=== PATIENT | female | born 1955 | race Caucasian/White ===

== ENCOUNTER → 2016-11-14 | Outpatient (CLI) | payer OTHER ==
[~2016-11-14] MED LIST: CALCIUM-MAGNES1 EAC9 PO; DYAZIDE 37.5-21 EACH PO; FISH OIL 1,0001 EAC5 PO; FLOMAX0.4 MG PO; FUROSEMIDE PO; GLUCOSAMINE &1 EAC1 PO; HYDROXYCHLOROQ200 M1 PO; METHOTREXATE 22.5 MG PO; MOBIC15 MG PO; MUCINEX600 MG PO; NOLVADEX10 MG PO; ONDANSETRON HCL4 M2 PO; PERCOCET 5-3251 EACH PO; POTASSIUM20 PO; PREDNISONE 10 M10 MG PO; PRILOSEC40 MG PO; SUDAFED30 MG PO; SYMBICORT160 MCG/4. IH; VENTOLIN HFA INH8 GM IH; VITAMIN D32000 UNIT PO
== END ==
LOC: MRI 07:31
DX: M17.12 Unilateral primary osteoarthritis, left knee (principal); M25.462 Effusion, left knee; M71.22 Synovial cyst of popliteal space [Baker], left knee; M25.562 Pain in left knee

== ENCOUNTER → 2017-02-17 | Outpatient (CLI) | payer OTHER ==
[2017-02-17 12:38] LABS: ABSOLUTE NEUTROPHILS 1.5 thou/uL (1.4-8.2); BASOPHILS 0.6 % (0.0-2.0); EOSINOPHILS 5.1 % (0.0-3.0); HEMATOCRIT 36.4 % (37.0-47.0); HEMOGLOBIN 12.3 gm/dL (12.0-15.0); LYMPHOCYTES 46.6 % (24.0-44.0); MCH 29.1 pg (26.0-34.0); MCHC 33.7 g/dL (28.0-37.0); MCV 86.4 fL (80.0-100.0); MONOCYTES 11.1 % (1.0-8.0); PLATELET COUNT 263 thou/uL (150-400); POLYS 36.6 % (36.0-66.0); RBC 4.21 mil/uL (4.20-5.00); RDW 14.9 % (10.5-14.5); WBC 4.1 thou/uL (4.0-11.0)
[2017-02-17 12:45] LABS: MANUAL DIFF NO
[2017-02-17 12:48] LABS: ANION GAP 8 mmol/L (7-16); BUN 16 mg/dL (7-18); CALCIUM 8.6 mg/dL (8.5-10.1); CHLORIDE 104 mmol/L (98-107); CO2 28 mmol/L (21-32); CREATININE 0.8 mg/dL (0.6-1.0); POTASSIUM 3.9 mmol/L (3.5-5.1); SODIUM 140 mmol/L (136-145)
[2017-02-17 12:53] LABS: ALBUMIN 3.5 g/dL (3.4-5.0); ALKALINE PHOSPHATASE 53 U/L (46-116); CHOLESTEROL 194 mg/dL (<200); HDL CHOLESTEROL 57 mg/dL (>40); LDL CHOLESTEROL 123 mg/dL (<100); SGOT 29 U/L (15-37); SGPT 29 U/L (30-65); TC:HDL 3.4 Ratio (Not establshd); TOTAL BILIRUBIN 0.5 mg/dL (<0.1-1.0); TRIGLYCERIDE 73 mg/dL (<150); VLDL 15 mg/dL (<40)
[2017-02-17 13:31] LABS: GLUCOSE 91 mg/dL (74-106)
[2017-02-18 00:10] LABS: IgA 85 mg/dL (87-352); IgG 1249 mg/dL (700-1600); IgM 314 mg/dL (26-217)
== END ==
LOC: LABMALL 07:52
PROVIDERS: Internal Medicine Rheumatology
DX: M05.69 Rheumatoid arthritis of multiple sites with involvement of other organs and systems (principal); R53.83 Other fatigue

== ENCOUNTER → 2017-03-17 | Outpatient (CLI) | payer OTHER | LOC: RAD 02:14 | DX: J45.909 Unspecified asthma, uncomplicated (principal); N20.0 Calculus of kidney ==

== ENCOUNTER → 2017-03-27 | Outpatient (CLI) | payer OTHER ==
--- NOTE | ~2017-03-27 | PFR/MVV ---
[facility] [place] [address] PULMONARY FUNCTION MVV/REPORT Name: MACARENA DOMÍNGUEZ Room #: REG [facility] Makayla#: [id number] Admission: 03/27/17 Attend Phys: Physician not on staff Discharge: Date of : 57 Report #: [id number] THIS REPORT FOR: //name// COPIES FOR: AGE: 61 SEX/RACE: F/C >> SPIROMETRY: (BTPS) Height: 61.0 in cm Weight: 180 lbs kg Exam Date: 03/27/17 PRE-RX POST-RX PRED BEST %PRED BEST %PRED %CHG FVC LITERS . 2.67 . 3.06 . 115 . 3.18 . 119 . 4 FEV1 LITERS . 2.19 . 2.19 . 100 . 2.25 . 103 . 3 FEV1/FVC % . 84 . 72 . 86 . 71 . 85 . -1 GDA92-01% L/Sec . 2.39 . 1.58 . 66 . 1.05 . 44 . -33 PEF L/SEC . 5.35 . 6.07 . 113 . 6.48 . 121 . 7 FEF50/FIF50 UNITLESS . <1.00 . 0.33 . . 0.35 . . 5 MVV L/Min . 92 . 74 . 81 f 1/Min . . 70 . >> LUNG VOLUMES: (BTPS) PRE-RX POST-RX PRED AVG %PRED AVG %PRED %CHG VC Liters . 2.67 . 3.21 . 120 . . . TLC Liters . 4.29 . 5.16 . 120 . . . RV Liters . 1.60 . 1.95 . 122 . . . RV/TLC % . 38 . 38 . 100 . . . FRC [address] Liters . 2.11 . 2.15 . 102 . . . FRC N2 Liters . 2.11 . . . . . ERV Liters . . 0.20 . . . . IC Liters . . 2.77 . . . . >> DIFFUSION: DLCO ml/Min/mmHg . 21.5 . 13.5 . 63 . . . DL Reji ml/Min/mmHg . 21.5 . 13.5 . 63 . . . DLCO/VA ml/Min/mmHg . 3.79 . 3.43 . 91 . . . VA Liters . . 3.95 . . . . [facility] [address] [place] [address] PULMONARY FUNCTION MVV/REPORT Name: MACARENA DOMÍNGUEZ Room #: REG [facility].#: [id number] Admission: 03/27/17 Attend Phys: Physician not on staff Discharge: Date of : 57 Report #: [id number] COMMENTS: COMMENTS: >> RESISTANCE: PRE-RX PRED AVG %PRED Raw Total cmH20/L/Sec . . 2.33 . Raw Insp cmH20/L/Sec . . 2.19 . Raw Exp cmH20/L/Sec . . 2.36 . Raw cmH20/L/Sec . 1.88 . 1.56 . 83 Gaw L/Sec/cmH20 . 0.506 . 0.639 . 126 sRaw cmH20 Sec . 3.96 . 5.37 . 136 sGaw l/cmH20 Sec . 0.253 . 0.186 . 74 Vtq Liters . . 3.44 . # = OUTSIDE 95% CONFIDENCE INTERVAL CALIBRATION: PRED: 3.00 ACTUAL: EXP 3.01 INSP 3.02 [facility] [place] [address] N-1804-4 >> INTERPRETATION/IMPRESSION: CC: Nahomy AGUIRRE Physician staff PULMONARY FUNCTION STUDY: No priors in chart. SPIROMETRY: FVC 115% predicted, FEV1 100% predicted. The FEV1/FVC percent was 72% predicted, suggesting obstruction. LUNG VOLUMES: Total lung capacity 120% predicted, residual volume 122% predicted, within normal limits to suggesting hyperinflation, diffusion 63%, which normalizes with alveolar volume. IMPRESSION: Possible mild obstruction with a diffusion defect, which normalizes with alveolar volume. Clinical correlation suggested. No significant improvement post-bronchodilator. <ELECTRONICALLY SIGNED> By: Douglas Almazan MD 03/31/17 1703 Douglas Almazan MD /nt
== END ==
LOC: PUL 08:31
DX: J45.909 Unspecified asthma, uncomplicated (principal)

== ENCOUNTER → 2017-04-24 | Outpatient (CLI) | payer OTHER | LOC: LABMALL 07:01 → CAT 07:01 | DX: R31.21 Asymptomatic microscopic hematuria (principal) ==

== ENCOUNTER → 2017-06-24 | Outpatient (CLI) | payer OTHER | LOC: RAD 13:13 | DX: I51.7 Cardiomegaly (principal); J18.9 Pneumonia, unspecified organism; J45.50 Severe persistent asthma, uncomplicated; J98.11 Atelectasis ==

== ENCOUNTER → 2017-12-14 | Outpatient (CLI) | payer OTHER ==
[~2017-12-14] MED LIST changes: +ALLEGRA ALLERG180 MG PO; +FOLIC ACID1 MG PO; -FUROSEMIDE PO; +LASIX 40 MG TAB40 M2 PO; +LIPITOR 20 MG T20 M1 PO; +MS CONTIN15 MG PO; +NEURONTIN 300300 M1 PO; +OMEPRAZOLE40 MG PO; +ORENCIA125 MG/1 M SUBQ; +PERCOCET PO; +PROAIR RESPICL90 MCG INH; -SYMBICORT160 MCG/4. IH; +SYMBICORT160 MCG/4. INH; +TRAMADOL 50 MG50 MG PO; +TRI-BUFFERED A325 M1 PO; +TYLENOL EXTRA500 MG PO; +VENTOLIN HFA 1818 GM INH; +VITAMINC500 PO; +XANAX 0.5 MG0.5 M1 PO; +XANAX1 MG PO
== END ==
LOC: NUC 09:01 → RAD 11:07 → NUC 16:07
DX: N20.0 Calculus of kidney (principal); M85.89 Other specified disorders of bone density and structure, multiple sites; E28.39 Other primary ovarian failure; R05 Cough; R06.00 Dyspnea, unspecified; Z78.0 Asymptomatic menopausal state

== ENCOUNTER → 2017-12-16 | Outpatient (CLI) | payer OTHER | LOC: RAD 03:09 | DX: R92.8 Other abnormal and inconclusive findings on diagnostic imaging of breast (principal); Z85.3 Personal history of malignant neoplasm of breast ==

== ENCOUNTER → 2017-12-23 | Outpatient (CLI) | payer OTHER ==
[~2017-12-23] VITALS: Ht 154.9 cm; Wt 79.4 kg
--- NOTE | ~2017-12-23 | CATHLAB ---
[facility] [place] [employer] [place] [address] INVASIVE PROCEDURE REPORT Name: CATRACHITAMACARENA CARLEY Room #: REG [facility]#: [id number] Admission: 12/23/17 Attend Phys: Efra Kelly, Discharge: Date of : 57 Date of Service: 12/23/17912 Report #: [id number] THIS REPORT FOR: //name// APPROVED REPORT Patient Details The patient is a 62 year-old female Event Personnel Efra Kelly Master Ship, Lexus Huddleston, Dagmar Enriquez RTR, BANDAR Scrub, Hamilton Bhatti service tester Performed Left Heart Cath w/or w/o Coronaries [id number] [facility] Procedure Narrative The Right Groin^ was infiltrated with 1% Lidocaine subcutaneous anesthesia. A PINNACLE 6FR Sheath #[id number] sheath was inserted into the RFA^. Coronary angiography was performed using coronary diagnostic catheters. The right coronary system was accessed and visualized with a JR4 catheter. The left coronary system was accessed and visualized with a JL4 catheter. The left ventricle was accessed and visualized with a PIGTAIL catheter. Left ventricular/Aortic Valve gradient assessed via catheter pullback. Left ventriculogram was performed in 30 degree projection. Closure device was deployed with a 6 Fr MYNXGRIP 6/7F #[id number]. The patient tolerated the procedure well and there were no complications associated with the procedure. There was no hematoma. Intraoperative Conscious Sedation Sedation start time: 8.13 Case end Time: 8.28 Versed 2 mg Fluoro Time: 1.02 minutes Dose: DAP 2653.30 cGycm2 285 mGy Contrast Type and Amount: Omnipaque 120 ml Diagnostic Cath Left Main Normal LAD Normal, extending to distal inferior wall Diagonal 1 Normal Diagonal 2 Normal Circumflex Large, non-dominant and comprised of three marginal branches [facility] [place] [employer] [place] [address] INVASIVE PROCEDURE REPORT Name: MACARENA DOMÍNGUEZ [facility] [id number] Admission: 12/23/17 Attend Phys: Efra Kelly, Discharge: Date of : 57 Date of Service: 12/23/17 0913 Report #: [id number] OM1 Normal OM2 Normal, distally arising OM3 Small, angiographically normal Right Coronary Normal R PDA Normal RPLV Normal Left Ventriculography The left ventricle is normal in size with normal contractility. The left ventricular ejection fraction is estimated to be 60-65%. Left ventricular wall motion abnormalities are not present. There is no mitral insufficiency. Hemodynamics The aortic pressure is 147/70 mmHg with a mean of 106 mmHg. The left ventricular pressure is 118/16 mmHg with a mean of mmHg. The left ventricular end diastolic pressure is 27 mmHg. Conclusion 1. Normal global and regional systolic function. EF 65% 2. Normal coronary vasculature. Right coronary dominant circulation <ELECTRONICALLY SIGNED> By: Efra Kelly MD, FACC 12/23/17912 2 2 Efra Kelly MD, FACC /INF
--- NOTE | ~2017-12-23 | EKG ---
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 AUSTIN : 1955 Requested By: Efra Kelly Order Number: [id number] MD: Efra Kelly Measurements Intervals [place] Rate: 80 P: 45 [place]: 162 QRS: 1 QRSD: 85 T: 1 QT: 398 QTc: 460 Interpretive Statements Sinus rhythm No significant abnormality Compared to ECG 09/18/2011 06:32:54 T-wave abnormality no longer present Electronically Signed On 12-23-2017 8:49:45 [employer] by Efra Kelly [email or web address] <ELECTRONICALLY SIGNED> By: Efra Kelly MD, [facility] 12/23/17 0849 9 9 Efra Kelly MD, [facility] /EPI
[2017-12-23 07:33] VITALS: BP 121/70
== END | disposition home or self-care (01) ==
LOC: CATH 06:38
DX: R94.39 Abnormal result of other cardiovascular function study (principal); M06.9 Rheumatoid arthritis, unspecified; Z98.890 Other specified postprocedural states; Z82.49 Family history of ischemic heart disease and other diseases of the circulatory system; K21.9 Gastro-esophageal reflux disease without esophagitis; E78.5 Hyperlipidemia, unspecified; Z85.3 Personal history of malignant neoplasm of breast

== ENCOUNTER 2018-01-11 05:27 | Inpatient (IN) | payer OTHER ==
[2018-01-04 13:29] LABS: URINE BILIRUBIN NEGATIVE (Negative); URINE BLOOD NEGATIVE (Negative); URINE COLOR YELLOW; URINE GLUCOSE-RANDOM* NEGATIVE (Negative); URINE KETONES NEGATIVE (Negative); URINE PROTEIN (DIPSTICK) TRACE (Negative); URINE UROBILINOGEN 0.2 E.U./dl (0.2-1.0)
[2018-01-04 13:30] LABS: HEMATOCRIT 35.5 % (37.0-47.0); HEMOGLOBIN 11.4 gm/dL (12.0-15.0); MCH 26.8 pg (26.0-34.0); MCHC 32.3 g/dL (28.0-37.0); MCV 83.1 fL (80.0-100.0); RBC 4.27 mil/uL (4.20-5.00); RDW 16.9 % (10.5-14.5)
[2018-01-04 13:31] LABS: URINE LEUKOCYTES-REFLEX 2+ (Negative); URINE NITRITE-REFLEX POSITIVE (Negative)
[2018-01-04 13:32] LABS: URINE CLARITY CLOUDY
[2018-01-04 13:33] LABS: BACTERIA-REFLEX >30 Many /HPF (None Seen); CASTS None Seen /LPF (None Seen); SQUAMOUS 0-3 Few /LPF (0-3); URINE RBC None Seen /HPF (0-2); URINE WBC-REFLEX >25 Many /HPF (0-5)
[2018-01-04 13:34] LABS: CRYSTALS None Seen /LPF (None Seen)
[2018-01-04 13:38] LABS: ALBUMIN 3.2 g/dL (3.4-5.0); CREATININE 0.8 mg/dL (0.6-1.0); POTASSIUM 4.1 mmol/L (3.5-5.1)
[2018-01-04 13:43] LABS: PROTIME 10.3 Seconds (9.3-11.4)
[~2018-01-11] VITALS: Ht 154.9 cm; Wt 79.4 kg
--- NOTE | ~2018-01-11 | O ---
[facility] [place] [address] OPERATIVE REPORT Name: MACARENA DOMÍNGUEZ Room #: 402-P [facility] IN M.R.#: [id number] Admission: 01/11/18 Attend Phys: Jaylen Sharp MD Discharge: 01/12/18 Date of : 57 Report #: [id number] THIS REPORT FOR: //name// CC: EMERSON MORFIN Physician staff Jaylen Sharp DATE OF SERVICE: 01/11/2018 PREOPERATIVE DIAGNOSIS: Left knee rheumatoid arthritis. POSTOPERATIVE DIAGNOSIS: Left knee rheumatoid arthritis. PROCEDURE: Left total knee arthroplasty. SURGEON: Jaylen Sharp MD SHAFT HEADMAN: Petra Ward PA-C INDICATIONS FOR SHAFT HEADMAN: Throughout the case, extensive retraction and manipulation of the knee was required, this was afforded to me by my assistant surveyor ANESTHESIA: LMA with an adductor canal block. IMPLANTS: Zaragoza and Nephew size 5 Legion Oxinium posterior stabilized femur, size 3 tibia, size 35 patella and a size 11 constrained liner. TOURNIQUET TIME: 56 minutes. ESTIMATED BLOOD LOSS: 50 mL. COMPLICATIONS: None. SPECIMENS: None. CONDITION UPON LEAVING THE OPERATING ROOM: Stable. INDICATION FOR PROCEDURE: The patient is a 62-year-old female who has rheumatoid arthritis. She has had increasing debility and pain in her left knee and had failed conservative treatment for this. After discussion with her, she elected for left total knee arthroplasty. DESCRIPTION OF PROCEDURE: Risks, benefits, alternatives, and complications were discussed in detail with the patient including, but not limited to risk of anesthesia, risk of damage to nerves, arteries, blood vessels, risk for infection, bleeding, risk for continued knee pain, need for reoperation. [facility] [address] [place] [address] OPERATIVE REPORT Name: MACARENA DOMÍNGUEZ Room #: 402-P [facility] IN M.R.#: [id number] Admission: 01/11/18 Attend Phys: Jaylen Sharp MD Discharge: 01/12/18 Date of : 57 Report #: [id number] Informed consent was obtained from the patient. The left knee was appropriately marked in the preoperative holding area. Adductor canal block was placed by anesthesia. IV Ancef was given for preoperative antibiotics. She was brought to the operating room and placed in supine position on operating room table. LMA anesthesia was induced without complication. Tourniquet was placed on left thigh. Left lower extremity was prepped and draped in normal sterile fashion. Timeout was performed properly identifying the patient and procedure as well as instrumentation. All in the operating room were in agreement. Left lower extremity was exsanguinated, tourniquet was inflated. Tourniquet time was 56 minutes. Standard midline approach to the knee was made with 10-blade through the skin. Dissection was taken down sharply to the fascia and deep flaps were developed medially and laterally. Fresh 10-blade was used to make a medial parapatellar arthrotomy and the knee was inspected, there was extensive rheumatoid arthritic change of the knee. There was significant hypertrophy of the synovium and a synovectomy was performed with a Bovie cautery. The patella was everted, knee was flexed. ACL and PCL were removed sharply. Drill was used to gain access to canal of the femur and distal femoral cutting block was pinned in place. Distal femoral cut was made. Femur sized found to be a size 5. A size 5, 4-in-1 cutting block was placed. Anterior, posterior and chamfer cuts were made. After this tibia was subluxed anteriorly, remainder of the menisci were removed with Bovie cautery and a drill was used to gain access to the canal of the tibia. Tibial resection was based off the lateral plateau. After tibial resection was performed, posterior osteophytes were removed from the femur and flexion and extension gaps were checked and found to have good balance with an 11 and flexion and extension medially. She was laterally, it was felt that this could be made up for with a constrained liner. Tibia was sized, found to be a size 3, the size 3 tibial trial was placed and the punch was performed. A size 5 femoral trial was placed, box cut was made, post was placed and the knee was trialed with a size 11 highly constrained polyethylene, found to have good range of motion and balance. A 9-mm was taken off the posterior surface of the patella and a size 35 patella button was placed. Knee was taken through range of motion, found to be stable, found to have good balance in flexion and extension both medially and laterally. After this, the trial components were removed. Final size 3 tibia, size 5 Legion Oxinium posterior stabilized femur and a size 35 patella were cemented in place using standard cementation techniques. While the cement cured, a periarticular injection consisting of morphine, ropivacaine, epinephrine and Toradol was placed around the knee joint. After the cement cured, the tourniquet was deflated. Hemostasis was obtained with Bovie cautery. A final size 11 highly constrained polyethylene was placed. A gram of vancomycin was placed deep in the joint. The fascia was closed with 0 Vicryl, skin was closed with 2-0 Vicryl, 3-0 Monocryl, and a Dermabond and a [facility] [address] [place] [address] OPERATIVE REPORT Name: MACARENA DOMÍNGUEZ Room #: 402-P [facility] IN .R.#: [id number] Admission: 01/11/18 Attend Phys: Jaylen Sharp MD Discharge: 01/12/18 Date of : 57 Report #: [id number] CARLITOS dressing was applied. The patient tolerated this procedure well and went to the recovery room under the care of anesthesia postoperatively. <ELECTRONICALLY SIGNED> By: Jaylen Sharp MD 01/13/18 1448 1701 1748 Jaylen Sharp MD /nt
[~2018-01-11 05:27] MED LIST changes: -ALLEGRA ALLERG180 MG PO; -MS CONTIN15 MG PO; -PERCOCET PO; -TRI-BUFFERED A325 M1 PO; -VITAMINC500 PO
[2018-01-11 14:19] VITALS: BP 134/74
[2018-01-11 20:40] VITALS: BP 115/64
[2018-01-11 20:44] VITALS: BP 106/60
[2018-01-11 20:55] VITALS: BP 102/66
[2018-01-11 21:15] VITALS: BP 104/65
[2018-01-11 23:46] VITALS: BP 98/57
[2018-01-12 02:40] VITALS: BP 88/56
[2018-01-12 04:31] VITALS: BP 99/56
[2018-01-12 06:40] LABS: HEMOGLOBIN 9.5 gm/dL (12.0-15.0); MCH 27.2 pg (26.0-34.0); MCHC 32.8 g/dL (28.0-37.0); MCV 82.7 fL (80.0-100.0); RBC 3.51 mil/uL (4.20-5.00); RDW 15.7 % (10.5-14.5); WBC 12.4 thou/uL (4.0-11.0)
[2018-01-12 08:51] VITALS: BP 114/63
[2018-01-12] MEDS ORDERED: TRI-BUFFERED A325 M1 PO (09:38)
[2018-01-12] MEDS ORDERED: MS CONTIN15 MG PO (09:39)
[2018-01-12] MEDS ORDERED: PERCOCET PO (09:45)
[2018-01-12 16:24] VITALS: BP 114/63
[2018-06-02] MEDS ORDERED: VITAMINC500 PO (10:40)
[2018-06-02] MEDS ORDERED: METHOTREXATE 22.5 MG PO (10:41)
[2018-08-27] MEDS ORDERED: ALLEGRA ALLERG180 MG PO (08:46)
== END 2018-01-12 18:12 | disposition home or self-care (01) | DRG 470 ==
LOC: PRE 05:27 → TBA 05:28 → PRE 12:39 → 4N 20:34 → ENTRNSPT 01-12 18:05 → 4N 01-12 18:12
PROVIDERS: Orthopaedic Surgery
PROC: 0SRD0J9 Replacement of Left Knee Joint with Synthetic Substitute, Cemented, Open Approach (ICD-10-PCS; principal; 2018-01-11)
DX: M17.12 Unilateral primary osteoarthritis, left knee (principal); Z79.899 Other long term (current) drug therapy
CPT/HCPCS: 10790; 50010; 50101; 50415; 50954; 51130; 51225; 51771; 53000; 53078; 53365; 54118; 56527; 56528; 57095; 62110; 62900; 64043

== ENCOUNTER 2018-09-13 05:17 | Inpatient (IN) | payer OTHER ==
[2018-08-30 12:51] LABS: URINE BILIRUBIN NEGATIVE (Negative); URINE BLOOD 2+ (Negative); URINE CLARITY CLOUDY; URINE COLOR YELLOW; URINE GLUCOSE-RANDOM* NEGATIVE (Negative); URINE KETONES NEGATIVE (Negative); URINE NITRITE-REFLEX NEGATIVE (Negative); URINE PROTEIN (DIPSTICK) NEGATIVE (Negative); URINE SPECIFIC GRAVITY 1.025 (1.005-1.035); URINE UROBILINOGEN 0.2 E.U./dl (0.2-1.0)
[2018-08-30 12:54] LABS: URINE LEUKOCYTES-REFLEX 2+ (Negative)
[2018-08-30 12:55] LABS: HEMATOCRIT 40.2 % (37.0-47.0); HEMOGLOBIN 13.4 gm/dL (12.0-15.0); MCHC 33.3 g/dL (28.0-37.0); MCV 84.1 fL (80.0-100.0); RBC 4.78 mil/uL (4.20-5.00); RDW 15.7 % (10.5-14.5); WBC 7.9 thou/uL (4.0-11.0)
[2018-08-30 12:59] LABS: BACTERIA-REFLEX 1-9 Few /HPF (None Seen); CASTS None Seen /LPF (None Seen); CRYSTALS None Seen /LPF (None Seen); SQUAMOUS 0-3 Few /LPF (0-3); URINE RBC 3-10 Few /HPF (0-2); URINE WBC-REFLEX >25 Many /HPF (0-5)
[2018-08-30 13:03] LABS: PROTIME 10.1 Seconds (9.3-11.4)
[2018-08-30 13:07] LABS: ALBUMIN 3.6 g/dL (3.4-5.0); CALCIUM 9.7 mg/dL (8.5-10.1); CREATININE 0.9 mg/dL (0.6-1.0); POTASSIUM 4.4 mmol/L (3.5-5.1)
[~2018-09-13] VITALS: Ht 154.9 cm; Wt 83.9 kg
--- NOTE | ~2018-09-13 | O ---
[facility] [address] OPERATIVE REPORT Name: MACARENA DOMÍNGUEZ Room #: 418-P [facility] IN M.R.#: [id number] Admission: 09/13/18 Attend Phys: Jaylen Sharp MD Discharge: 09/14/18 Date of : 57 Report #: [id number] THIS REPORT FOR: //name// CC: Jaylen [place] DATE OF SERVICE: 09/13/2018 PREOPERATIVE DIAGNOSIS: Right knee rheumatoid arthritis. POSTOPERATIVE DIAGNOSIS: Right knee rheumatoid arthritis. PROCEDURE: Right total knee arthroplasty using NAVIO robotic dental chairside assistant. SURGEON: aJylen Sharp MD. WAREHOUSE SORTER: Petra Ward PA-C INDICATION FOR WAREHOUSE SORTER: Throughout the case extensive retraction and manipulation of the knee was required. This was afforded to me by my dental chairside assistant. ANESTHESIA: LMA with an adductor canal block. IMPLANTS: Zaragoza and Nephew size 4 Journey 2 BCS Oxinium femur, a size 3 tibia, a size 32 patella and a size 9 highly constrained polyethylene. TOURNIQUET TIME: 66 minutes. ESTIMATED BLOOD LOSS: 25 mL. CONDITION UPON LEAVING THE OPERATING ROOM: Stable. INDICATION FOR PROCEDURE: The patient is a 62-year-old female with right knee rheumatoid arthritis. She has failed conservative measures for this and after discussion with her, she elected for right total knee arthroplasty. DESCRIPTION OF PROCEDURE: Risks, benefits, alternatives, complications were discussed in detail with the patient including but not limited to risk of anesthesia, risk of damage to nerves, arteries, blood vessels, risk for infection, bleeding, risk for continued knee pain and need for operation. Informed consent was obtained from the patient. Right knee was appropriately marked in the preoperative holding area. IV vancomycin was given for preoperative antibiotics. She was brought to the operating room and placed in supine position on operating room table. LMA anesthesia was induced without complication. Tourniquet was placed on the right thigh. Right lower extremity was prepped and draped in normal sterile fashion. Timeout was performed [address] [address] OPERATIVE REPORT Name: FEMIDAREKEmelyMACARENA CARLEY Room #: 418-P [facility] IN M.R.#: [id number] Admission: 09/13/18 Attend Phys: Jaylen Sharp MD Discharge: 09/14/18 Date of : 57 Report #: [id number] properly identifying the patient and procedure as well as the instrumentation and implants. All in the operating room were in agreement. Right lower extremity was exsanguinated, tourniquet was inflated. Tourniquet time was 66 minutes. Standard midline approach to knee was made with 10 blade through the skin. Dissection was taken down sharply to the fascia and deep flaps were developed medially and laterally. A fresh 10 blade was used to make a medial parapatellar arthrotomy and the knee was inspected. There was severe tricompartmental rheumatoid arthritis. ACL, and PCL were removed sharply. Anterior horns of the meniscus were removed sharply. Reference pins were then placed in the femur and the tibia and the knee was then mapped using the NAVIO distal navigation system. Intraoperative plan was made and we sized to a size 4 femur, a size 3 tibia. After acceptance of the intraoperative plan, the distal femoral resection was made with the NAVIO agatha. The 5-in-1 size 4 cutting block was then placed and pinned and the chamfer cuts were made. After this, attention was turned to the tibia. The knee was hyperflexed. Tibia was subluxed anteriorly. Tibial resection guide was pinned in place using the NAVIO robotic assistance. Tibial resection was made. After this, flexion and extension gaps were checked with the block and found to have good balance in flexion and extension both medially and laterally. Tibia was sized, found to be a size 3, a size 3 tibial trial was placed and this was pinned and punched. The size 4 femoral trial was placed and the box cut was made. This was then trialed with size 9 polyethylene. Knee was taken through range of motion and found to have good balance medially throughout, full range of motion with significant laxity laterally. This was then trialed with a highly constrained implant and found to have equal balance in flexion, extension both digitally as well as manually. After this, the 9 mm was taken off the posterior surface of the patella and a size 32 [address] block was place. The knee was taken through range of motion, found to have good balance in flexion and extension with good patellar tracking. Trial components were removed. Bony ends were thoroughly irrigated with normal saline. Final size 3 tibia, size 4 Journey 2 BCS Oxinium femur and a size 32 patella were cemented in place using standard cementation techniques. While the cement cured, a periarticular injection consisting of morphine, ropivacaine, epinephrine and Toradol was placed around the knee joint capsule. After the cement cured, the tourniquet was deflated. Hemostasis was obtained with Bovie cautery. A final size 9 highly constrained polyethylene was placed. A gram of vancomycin was placed deep in the joint. The fascia was closed with 0 Vicryl, skin was closed with 2-0 Vicryl, 3-0 Monocryl. Dermabond and CARLITOS dressing was applied. The patient tolerated this procedure well and went to recovery room under the care of Anesthesia postoperatively. <ELECTRONICALLY SIGNED> By: Jaylen Sharp MD 09/15/18 1559 1631 1723 Jaylen Sharp MD /dilia
[~2018-09-13 05:17] MED LIST changes: +ALLEGRA ALLERG180 MG PO; +MS CONTIN15 MG PO; +PERCOCET PO; +TRI-BUFFERED A325 M1 PO; +VITAMINC500 PO
[2018-09-13 11:45] VITALS: BP 122/70
[2018-09-13 15:56] VITALS: BP 138/81
[2018-09-13 16:30] VITALS: BP 114/75
[2018-09-13 17:30] VITALS: BP 114/70
[2018-09-13 20:38] VITALS: BP 117/67
[2018-09-14 04:05] LABS: HEMATOCRIT 31.8 % (37.0-47.0); HEMOGLOBIN 10.7 gm/dL (12.0-15.0); MCH 28.1 pg (26.0-34.0); MCHC 33.6 g/dL (28.0-37.0); MCV 83.6 fL (80.0-100.0); RBC 3.8 mil/uL (4.20-5.00); RDW 15.2 % (10.5-14.5); WBC 11.6 thou/uL (4.0-11.0)
[2018-09-14 04:41] VITALS: BP 123/76
[2018-09-14 08:12] VITALS: BP 103/63
[2018-09-14] MEDS ORDERED: TRI-BUFFERED A325 M1 PO (10:29)
[2018-09-14] MEDS ORDERED: NEURONTIN 300300 M1 PO (10:29)
[2018-09-14 11:39] VITALS: BP 103/63
[2018-09-14 15:33] VITALS: BP 121/71
== END 2018-09-14 18:00 | disposition home or self-care (01) | DRG 470 ==
LOC: PRE 05:17 → TBA 10:15 → PRE 10:59 → 4E 15:38 → ENTRNSPT 09-14 17:40 → 4E 09-14 18:00
PROVIDERS: Orthopaedic Surgery
PROC: 0SRC069 Replacement of Right Knee Joint with Oxidized Zirconium on Polyethylene Synthetic Substitute, Cemented, Open Approach (ICD-10-PCS; principal; 2018-09-13)
DX: M06.861 Other specified rheumatoid arthritis, right knee (principal); J45.909 Unspecified asthma, uncomplicated; Z96.652 Presence of left artificial knee joint; K21.9 Gastro-esophageal reflux disease without esophagitis; Z85.3 Personal history of malignant neoplasm of breast; Z92.3 Personal history of irradiation; Z90.49 Acquired absence of other specified parts of digestive tract; Z90.710 Acquired absence of both cervix and uterus; Z86.14 Personal history of Methicillin resistant Staphylococcus aureus infection; Z79.899 Other long term (current) drug therapy; Z88.1 Allergy status to other antibiotic agents
CPT/HCPCS: 10783; 50010; 50101; 50415; 50954; 51130; 51225; 51771; 53000; 53078; 54118; 55372; 56527; 56528; 57095; 57103; 57109; 57110; 57113; 57127; 62110; 62900; 64042; 70005

== ENCOUNTER 2018-11-27 20:36 | Emergency (ER) | payer OTHER ==
[~2018-11-27] VITALS: Ht 154.9 cm; Wt 85.3 kg
[2018-11-27 21:14] LABS: URINE BILIRUBIN NEGATIVE (Negative); URINE CLARITY CLEAR; URINE COLOR YELLOW; URINE GLUCOSE-RANDOM* NEGATIVE (Negative); URINE KETONES 1+ (Negative); URINE PROTEIN (DIPSTICK) NEGATIVE (Negative); URINE SPECIFIC GRAVITY 1.015 (1.005-1.035)
[2018-11-27 21:15] LABS: URINE BLOOD NEGATIVE (Negative); URINE LEUKOCYTES-REFLEX 1+ (Negative); URINE NITRITE-REFLEX NEGATIVE (Negative); URINE UROBILINOGEN 0.2 E.U./dl (0.2-1.0)
[2018-11-27 21:19] LABS: CASTS None Seen /LPF (None Seen); MUCUS 0-3 Light strn/LPF (None Seen); SQUAMOUS None Seen /LPF (0-3)
[2018-11-27 21:20] LABS: BACTERIA-REFLEX 1-9 Few /HPF (None Seen); CRYSTALS None Seen /LPF (None Seen); URINE RBC 3-10 Few /HPF (0-2); URINE WBC-REFLEX >25 Many /HPF (0-5); WBC CLUMPS Rare (None Seen)
[2018-11-27 22:13] LABS: ABSOLUTE NEUTROPHILS 11.5 thou/uL (1.4-8.2); BASOPHILS 0.6 % (0.0-2.0); EOSINOPHILS 0.1 % (0.0-3.0); HEMATOCRIT 35.5 % (37.0-47.0); LYMPHOCYTES 7.6 % (24.0-44.0); MCH 28.1 pg (26.0-34.0); MCHC 33.8 g/dL (28.0-37.0); MCV 83.2 fL (80.0-100.0); MONOCYTES 8.6 % (1.0-8.0); PLATELET COUNT 365 thou/uL (150-400); POLYS 83.1 % (36.0-66.0); RBC 4.27 mil/uL (4.20-5.00); RDW 15.1 % (10.5-14.5); WBC 13.9 thou/uL (4.0-11.0)
[2018-11-27 22:24] LABS: CALCIUM 9.2 mg/dL (8.5-10.1); CREATININE 1.3 mg/dL (0.6-1.0); POTASSIUM 3.8 mmol/L (3.5-5.1)
[2018-11-27 22:29] LABS: ALBUMIN 3.4 g/dL (3.4-5.0); TOTAL BILIRUBIN 0.5 mg/dL (<0.1-1.0); TOTAL PROTEIN 7.3 g/dL (6.4-8.2)
[2018-11-28 00:45] VITALS: BP 106/71
== END 2018-11-28 00:40 | disposition short-term general hospital (02) ==
LOC: ER 20:36
PROVIDERS: Student in an Organized Health Care Education/Training Program
DX: N13.2 Hydronephrosis with renal and ureteral calculous obstruction (principal); N39.0 Urinary tract infection, site not specified; N17.9 Acute kidney failure, unspecified; M19.90 Unspecified osteoarthritis, unspecified site; J45.909 Unspecified asthma, uncomplicated; K21.9 Gastro-esophageal reflux disease without esophagitis; Z90.49 Acquired absence of other specified parts of digestive tract; Z90.710 Acquired absence of both cervix and uterus; Z95.5 Presence of coronary angioplasty implant and graft; Z88.1 Allergy status to other antibiotic agents

== ENCOUNTER → 2018-12-20 | Outpatient (CLI) | payer OTHER | LOC: RAD 03:20 | DX: Z12.31 Encounter for screening mammogram for malignant neoplasm of breast (principal) ==

== ENCOUNTER → 2019-05-06 | Outpatient (CLI) | payer OTHER | LOC: RAD 13:04 | DX: N20.0 Calculus of kidney (principal); K56.41 Fecal impaction ==

== ENCOUNTER → 2019-08-18 | Outpatient (CLI) | payer OTHER | LOC: RAD 08:09 | DX: N20.0 Calculus of kidney (principal); K56.41 Fecal impaction ==

== ENCOUNTER → 2020-01-06 | Outpatient (CLI) | payer OTHER | LOC: BC 10:36 | DX: Z12.31 Encounter for screening mammogram for malignant neoplasm of breast (principal) ==

== ENCOUNTER 2020-01-23 17:12 | Emergency (ER) | payer OTHER ==
[~2020-01-23] VITALS: Ht 157.5 cm; Wt 81.7 kg
[2020-01-23 18:51] LABS: HEMATOCRIT 38.5 % (37.0-47.0); HEMOGLOBIN 12.5 gm/dL (12.0-15.0); MCH 27.4 pg (26.0-34.0); MCHC 32.4 g/dL (28.0-37.0); MCV 84.7 fL (80.0-100.0); PLATELET COUNT 338 thou/uL (150-400); RBC 4.55 mil/uL (4.20-5.00); RDW 14.6 % (10.5-14.5); WBC 4.6 thou/uL (4.0-11.0)
[2020-01-23 19:00] LABS: ANION GAP 7 mmol/L (7-16); BUN 15 mg/dL (7-18); CALCIUM 8.9 mg/dL (8.5-10.1); CHLORIDE 103 mmol/L (98-107); CO2 26 mmol/L (21-32); CREATININE 0.9 mg/dL (0.6-1.0); GLUCOSE 100 mg/dL (74-106); POTASSIUM 3.8 mmol/L (3.5-5.1); SODIUM 136 mmol/L (136-145)
[2020-01-23 19:06] LABS: APTT 35.1 Seconds (24.5-32.8); PROTIME 9.9 Seconds (9.3-11.4)
[2020-01-23 19:06] LABS: BE(vivo) -3.5 mmol/L (-2 to +3); HCO3 21.2 mmol/L (22.0-26.0); PCO2 VENOUS 37.5 mmHg (41.0-51.0); PO2 VENOUS 55.1 mmHg (35.0-45.0)
[2020-01-23 19:11] LABS: ALBUMIN 3.6 g/dL (3.4-5.0); MAGNESIUM 1.7 mg/dL (1.8-2.4); SGOT 38 U/L (15-37); SGPT 30 U/L (30-65); TOTAL BILIRUBIN 0.2 mg/dL (<0.1-1.0); TOTAL PROTEIN 6.9 g/dL (6.4-8.2); TROPONIN-I <0.06 ng/mL (<0.06)
[2020-01-23] MEDS ORDERED: TAMIFLU75 MG PO (19:48)
[2020-01-23] MEDS ORDERED: PREDNISONE 10 M10 M1 PO (19:48)
[2020-01-23] MEDS ORDERED: VENTOLIN HFA 1818 GM INH (19:48)
[2020-01-23] MEDS ORDERED: TESSALON PERLE100 MG PO (19:48)
[2020-01-23] MEDS ORDERED: DOXYCYCLINE 10100 MG PO (19:48)
[2020-01-23 20:19] VITALS: BP 125/70
--- NOTE | 2020-01-24 08:47 | EKG ---
[facility] [place] [address] [address] ELECTROCARDIOGRAM REPORT Name: MACARENA DOMÍNGUEZ Room #: DEP 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: : 1955 Requested By: Carlos Burch Order Number: [id number] MD: Efra Kelly Measurements Intervals [place] Rate: 90 P: 46 AL: 148 QRS: -14 QRSD: 85 T: 11 QT: 361 QTc: 442 Interpretive Statements Sinus rhythm Poor R wave progression Compared to ECG 12/23/2017 07:40:01 No significant change was found Electronically Signed On 01-24-2020 8:46:32 CDT by Efra Kelly [email or web address] <ELECTRONICALLY SIGNED> By: Efra Kelly MD, [facility] 01/24/20 0846 180 01 Efra Kelly MD, [facility] /EPI
== END 2020-01-23 20:21 | disposition home or self-care (01) ==
LOC: ER 17:12
PROVIDERS: Emergency Medicine
DX: J45.901 Unspecified asthma with (acute) exacerbation (principal); M06.9 Rheumatoid arthritis, unspecified; Z90.710 Acquired absence of both cervix and uterus; Z90.49 Acquired absence of other specified parts of digestive tract; Z96.652 Presence of left artificial knee joint; Z98.61 Coronary angioplasty status; Z98.890 Other specified postprocedural states; Z79.899 Other long term (current) drug therapy; Z88.1 Allergy status to other antibiotic agents

== ENCOUNTER → 2020-05-31 | Outpatient (CLI) | payer OTHER ==
[~2020-05-31] MED LIST changes: +DOXYCYCLINE 10100 MG PO; +PREDNISONE 10 M10 M1 PO; +TAMIFLU75 MG PO; +TESSALON PERLE100 MG PO
[2020-05-31 11:00] LABS: ABSOLUTE NEUTROPHILS 3.4 thou/uL (1.4-8.2); BASOPHILS 0.5 % (0.0-2.0); EOSINOPHILS 0.7 % (0.0-3.0); HEMATOCRIT 40.2 % (37.0-47.0); HEMOGLOBIN 13.3 gm/dL (12.0-15.0); LYMPHOCYTES 32.6 % (24.0-44.0); MCH 28.2 pg (26.0-34.0); MCHC 33.1 g/dL (28.0-37.0); MCV 85.1 fL (80.0-100.0); MONOCYTES 6.5 % (1.0-8.0); PLATELET COUNT 372 thou/uL (150-400); POLYS 59.7 % (36.0-66.0); RBC 4.73 mil/uL (4.20-5.00); RDW 15.7 % (10.5-14.5); WBC 5.7 thou/uL (4.0-11.0)
[2020-05-31 11:17] LABS: ALBUMIN 3.6 g/dL (3.4-5.0); CALCIUM 8.7 mg/dL (8.5-10.1); CREATININE 0.8 mg/dL (0.6-1.0); POTASSIUM 4.3 mmol/L (3.5-5.1); TOTAL BILIRUBIN 0.3 mg/dL (0.2-1.0); TOTAL PROTEIN 7.1 g/dL (6.4-8.2)
== END ==
LOC: LAB 09:45
PROVIDERS: ATTEND Internal Medicine Rheumatology
DX: M06.09 Rheumatoid arthritis without rheumatoid factor, multiple sites (principal)

== ENCOUNTER → 2020-09-06 | Outpatient (CLI) | payer OTHER ==
[2020-09-06 10:57] LABS: BASOPHILS 0.5 % (0.0-2.0); EOSINOPHILS 0.5 % (0.0-3.0); HEMATOCRIT 41.5 % (37.0-47.0); HEMOGLOBIN 13.5 gm/dL (12.0-15.0); LYMPHOCYTES 36.3 % (24.0-44.0); MCH 28.2 pg (26.0-34.0); MCHC 32.6 g/dL (28.0-37.0); MCV 86.5 fL (80.0-100.0); MONOCYTES 8.4 % (1.0-8.0); PLATELET COUNT 377 thou/uL (150-400); POLYS 54.3 % (36.0-66.0); RBC 4.79 mil/uL (4.20-5.00); WBC 7.5 thou/uL (4.0-11.0)
[2020-09-06 11:09] LABS: ALBUMIN 3.4 g/dL (3.4-5.0); CALCIUM 9.1 mg/dL (8.5-10.1); POTASSIUM 3.9 mmol/L (3.5-5.1); TOTAL BILIRUBIN 0.6 mg/dL (0.2-1.0); TOTAL PROTEIN 7.3 g/dL (6.4-8.2)
== END ==
LOC: LAB 10:30
PROVIDERS: ATTEND Internal Medicine Rheumatology
DX: M06.09 Rheumatoid arthritis without rheumatoid factor, multiple sites (principal)

== ENCOUNTER → 2020-11-05 | Outpatient (CLI) | payer OTHER ==
[2020-11-05 11:27] LABS: ABSOLUTE NEUTROPHILS 5.5 thou/uL (1.4-8.2); BASOPHILS 0.5 % (0.0-2.0); EOSINOPHILS 0.2 % (0.0-3.0); HEMATOCRIT 40.6 % (37.0-47.0); HEMOGLOBIN 13.1 gm/dL (12.0-15.0); LYMPHOCYTES 22.5 % (24.0-44.0); MCH 27.9 pg (26.0-34.0); MCHC 32.4 g/dL (28.0-37.0); MCV 86.2 fL (80.0-100.0); MONOCYTES 9.1 % (1.0-8.0); PLATELET COUNT 376 thou/uL (150-400); POLYS 67.7 % (36.0-66.0); RBC 4.71 mil/uL (4.20-5.00); WBC 8.2 thou/uL (4.0-11.0)
[2020-11-05 11:45] LABS: ALBUMIN 3.5 g/dL (3.4-5.0); ANION GAP 13 mmol/L (7-16); BUN 18 mg/dL (7-18); CALCIUM 9.2 mg/dL (8.5-10.1); CHLORIDE 103 mmol/L (98-107); CHOLESTEROL 206 mg/dL (<200); CO2 24 mmol/L (21-32); CREATININE 0.9 mg/dL (0.6-1.0); GLUCOSE 103 mg/dL (74-106); HDL CHOLESTEROL 67 mg/dL (>40); LDL CHOLESTEROL 122 mg/dL (<100); POTASSIUM 3.7 mmol/L (3.5-5.1); SGOT 36 U/L (15-37); SGPT 40 U/L (30-65); SODIUM 140 mmol/L (136-145); TC:HDL 3.1 Ratio (Not establshd); TOTAL BILIRUBIN 0.4 mg/dL (0.2-1.0); TOTAL PROTEIN 7.3 g/dL (6.4-8.2); TRIGLYCERIDE 88 mg/dL (<150); VLDL 18 mg/dL (<40)
== END ==
LOC: LAB 09:18 → NUC 09:18
PROVIDERS: ATTEND Internal Medicine
DX: M81.0 Age-related osteoporosis without current pathological fracture (principal); M85.88 Other specified disorders of bone density and structure, other site

== ENCOUNTER → 2021-01-15 | Outpatient (CLI) | payer OTHER | LOC: RAD 10:47 | PROVIDERS: ATTEND Internal Medicine | DX: Z12.31 Encounter for screening mammogram for malignant neoplasm of breast (principal) ==

== ENCOUNTER → 2021-02-18 | Outpatient (CLI) | payer OTHER ==
[~2021-02-18] MED LIST changes: +FOSAMAX 70 MG T70 MG PO; +INCRUSE ELLI62.5 MCG INH; +MELOXICAM7.5 MG PO; +SINGULAIR 10 MG10 MG PO; +SOMA350 MG PO; -VITAMIN D32000 UNIT PO; +VITAMIN D350 MC3 PO
== END ==
LOC: LAB 10:34
PROVIDERS: Student in an Organized Health Care Education/Training Program; ATTEND Specialist
DX: Z01.812 Encounter for preprocedural laboratory examination (principal); Z20.822 Contact with and (suspected) exposure to COVID-19

== ENCOUNTER → 2021-02-20 | Outpatient (CLI) | payer OTHER ==
[~2021-02-20] VITALS: Ht 154.9 cm; Wt 80.7 kg
--- NOTE | 2021-02-22 14:07 | PATH ---
[facility] [address] [address] [place] [address] PATHOLOGY RPT PROCEDURE Name: MACARENA BEY Room #: REG [facility] Ceballos.#: [id number] Admission: 02/20/21 Date of : 57 Discharge: Report #: [id number] Path Case #: [id number] [facility] Accession Number: [id number] . 01 Material submitted: . PART A: cecum - CECAL POLYP PART B: colon - ASCENDING COLON POLYP. Modifiers: ascending . 01 Clinical history: . COLONOSCOPY HX POLYPS . 02 Diagnosis: A. Polyp, cecal polyp, endoscopic biopsy: - Tubular adenoma. - Negative for high-grade dysplasia. . B. Polyp, ascending colon polyp, endoscopic biopsy: - Tubular adenoma identified in multiple fragments. - Negative for high-grade dysplasia. (IUV:watson; 02/22/2021) QMS 02/22/2021 1114 Local . 02 Electronically signed: . Evelyne Sheest MD, Pathologist NPI- [id number] . 01 Gross description: . A. The specimen is received in formalin, labeled "Macarena Bey, cecal polyp". Received are three segments of pale rojas tissue ranging in size from 0.1-0.4 cm in maximum dimensions. The specimen is submitted entirely in cassette A1. . B. The specimen is received in formalin, labeled "Macarean Bey, ascending colon polyp". Received are three segments of pale rojas tissue ranging in size from 0.3-0.4 cm in maximum dimensions. The specimen is submitted entirely in cassette B1. (CAA; 02/21/2021) QAC/QAC 02/21/2021 1216 Local . 02 Pathologist provided ICD-10: D12.0, D12.2 . 02 CPT . 570683, 948049 Specimen Comment: A courtesy copy of this report has been sent to [phone], [id number], [place] [address] PATHOLOGY RPT PROCEDURE Name: MACARENA BEY Room #: REG [facility].#: [id number] Admission: 02/20/21 Date of : 57 Discharge: Report #: [id number] Path Case #: [id number] Specimen Comment: [id number] Specimen Comment: Report sent to / DR CHARLES Performed at: [address], [place], [place] [id number] MD Eloy Dudley MD Phone: [phone] Performed at: [address] [id number] MD Evelyne Sheets MD Phone: [phone]
--- NOTE | 2021-02-24 14:04 | P ---
[facility] [place] [address] PROCEDURE REPORT Name: MACARENA DOMÍNGUEZ [facility] [id number] Admission: 02/20/21 Attend Phys: Lit Ames Discharge: Date of : 57 Report #: [id number] THIS REPORT FOR: cc: Osiel Branham,Osiel Acosta,Lit Trujillo MD ~ DATE OF SERVICE: 02/20/2021 PROCEDURE PERFORMED: Colonoscopy with polypectomy. HISTORY OF PRESENT ILLNESS: The patient is a 65-year-old female who presents today for screening colonoscopy. Last colonoscopy 5 years ago was normal other than mild diverticulosis. She does have a family history of colon cancer in her brother. She is here for a routine 5-year followup. She denies any symptoms. DESCRIPTION OF PROCEDURE: The risks and benefits of the procedure were explained to the patient, those risks including but not limited to bleeding, perforation and the risk of sedation. She understood these risks and gave informed consent. Sedation was given using propofol per anesthesia. Next, a digital rectal exam was initially performed, which was normal. Next, using a standard Olympus colonoscope, the scope was placed in the patient's anus and advanced under direct vision to the cecum. The overall prep was excellent. In the cecum, there was a 5 mm sessile polyp. This was removed by cold snare, otherwise normal. The ileocecal valve was normal. In the ascending colon, a 4 mm sessile polyp was also noted. This was removed by cold forceps. The transverse and descending colon were normal. A few small scattered diverticula were noted in the sigmoid colon, otherwise normal. The rectal mucosa was normal. On retroflexion, no abnormalities were noted. The scope was then withdrawn and the procedure terminated. The patient tolerated the procedure well. IMPRESSION: 1. Two small colonic polyps. 2. Mild sigmoid diverticulosis. 3. Otherwise, normal colonoscopy. RECOMMENDATIONS: 1. Await biopsy results. 2. Repeat colonoscopy in [address] [address] PROCEDURE REPORT Name: MACARENA DOMÍNGUEZ Room #: REG [facility] Benavides#: [id number] Admission: 02/20/21 Attend Phys: Lit Ames Discharge: Date of : 57 Report #: [id number] Thank you for allowing me to participate in her care. <ELECTRONICALLY SIGNED> By: Lit Rose MD 02/24/21 1404 0900 1411 Lit Rose MD /nt
== END | disposition home or self-care (01) ==
LOC: GI 06:58
PROVIDERS: ATTEND Specialist
DX: Z12.11 Encounter for screening for malignant neoplasm of colon (principal); Z80.0 Family history of malignant neoplasm of digestive organs; D12.0 Benign neoplasm of cecum; D12.2 Benign neoplasm of ascending colon; K57.30 Diverticulosis of large intestine without perforation or abscess without bleeding; J45.909 Unspecified asthma, uncomplicated; M06.9 Rheumatoid arthritis, unspecified; K21.9 Gastro-esophageal reflux disease without esophagitis; Z90.49 Acquired absence of other specified parts of digestive tract; Z90.710 Acquired absence of both cervix and uterus; Z96.652 Presence of left artificial knee joint; Z85.3 Personal history of malignant neoplasm of breast; Z87.442 Personal history of urinary calculi; Z98.890 Other specified postprocedural states; Z79.899 Other long term (current) drug therapy; Z88.8 Allergy status to other drugs, medicaments and biological substances
CPT/HCPCS: 62110; 62900

== ENCOUNTER → 2021-04-25 | Outpatient (CLI) | payer OTHER ==
[2021-04-25 09:08] LABS: ABSOLUTE NEUTROPHILS 3.1 thou/uL (1.4-8.2); BASOPHILS 0.8 % (0.0-2.0); EOSINOPHILS 5.1 % (0.0-3.0); HEMATOCRIT 33.8 % (37.0-47.0); LYMPHOCYTES 37.4 % (24.0-44.0); MCH 26.3 pg (26.0-34.0); MCHC 32.6 g/dL (28.0-37.0); MCV 80.8 fL (80.0-100.0); MONOCYTES 10.4 % (1.0-8.0); PLATELET COUNT 394 thou/uL (150-400); POLYS 46.3 % (36.0-66.0); RBC 4.18 mil/uL (4.20-5.00); RDW 16.1 % (10.5-14.5); WBC 6.8 thou/uL (4.0-11.0)
[2021-04-25 09:37] LABS: ALBUMIN 3.2 g/dL (3.4-5.0); CALCIUM 8.7 mg/dL (8.5-10.1); CREATININE 0.9 mg/dL (0.6-1.0); POTASSIUM 4.2 mmol/L (3.5-5.1); TOTAL BILIRUBIN 0.3 mg/dL (0.2-1.0); TOTAL PROTEIN 6.3 g/dL (6.4-8.2)
== END ==
LOC: LAB 08:32
PROVIDERS: ATTEND Internal Medicine Rheumatology
DX: M06.09 Rheumatoid arthritis without rheumatoid factor, multiple sites (principal)

== ENCOUNTER → 2021-09-13 | Outpatient (CLI) | payer OTHER ==
[2021-09-13 10:27] LABS: ABSOLUTE NEUTROPHILS 4.7 thou/uL (1.4-8.2); BASOPHILS 0.4 % (0.0-2.0); EOSINOPHILS 2.1 % (0.0-3.0); HEMATOCRIT 33.1 % (37.0-47.0); HEMOGLOBIN 10.4 gm/dL (12.0-15.0); LYMPHOCYTES 24.6 % (24.0-44.0); MCH 23.1 pg (26.0-34.0); MCHC 31.3 g/dL (28.0-37.0); MCV 73.8 fL (80.0-100.0); MONOCYTES 9.5 % (1.0-8.0); PLATELET COUNT 438 thou/uL (150-400); POLYS 63.4 % (36.0-66.0); RBC 4.48 mil/uL (4.20-5.00); RDW 20.7 % (10.5-14.5); WBC 7.5 thou/uL (4.0-11.0)
[2021-09-13 10:50] LABS: ALBUMIN 3.1 g/dL (3.4-5.0); CALCIUM 8.5 mg/dL (8.5-10.1); CREATININE 0.8 mg/dL (0.6-1.0); POTASSIUM 4.1 mmol/L (3.5-5.1); TOTAL BILIRUBIN 0.3 mg/dL (0.2-1.0); TOTAL PROTEIN 6.9 g/dL (6.4-8.2)
== END ==
LOC: CAT 08:43
PROVIDERS: ATTEND Internal Medicine
DX: K57.32 Diverticulitis of large intestine without perforation or abscess without bleeding (principal); M06.09 Rheumatoid arthritis without rheumatoid factor, multiple sites; N20.0 Calculus of kidney; K42.9 Umbilical hernia without obstruction or gangrene

== ENCOUNTER → 2021-12-03 | Outpatient (CLI) | payer OTHER ==
[2021-12-03 11:01] LABS: LYMPHOCYTES 31.9 % (24.0-44.0); RBC 4.56 mil/uL (4.20-5.00)
[2021-12-03 11:03] LABS: ABSOLUTE NEUTROPHILS 6.7 thou/uL (1.4-8.2); BASOPHILS 0.2 % (0.0-2.0); EOSINOPHILS 0.9 % (0.0-3.0); HEMATOCRIT 34.5 % (37.0-47.0); HEMOGLOBIN 10.9 gm/dL (12.0-15.0); MCH 23.9 pg (26.0-34.0); MCHC 31.7 g/dL (28.0-37.0); MCV 75.5 fL (80.0-100.0); MONOCYTES 9.2 % (1.0-8.0); PLATELET COUNT 491 thou/uL (150-400); POLYS 57.8 % (36.0-66.0); RDW 18.7 % (10.5-14.5); WBC 11.6 thou/uL (4.0-11.0)
[2021-12-03 11:09] LABS: ALBUMIN 3.3 g/dL (3.4-5.0); CALCIUM 9.5 mg/dL (8.5-10.1); CREATININE 0.7 mg/dL (0.6-1.0); POTASSIUM 3.7 mmol/L (3.5-5.1); TOTAL BILIRUBIN 0.3 mg/dL (0.2-1.0)
[2021-12-03 11:39] LABS: ANISOCYTOSIS 1+; PLATELET ESTIMATE NORMAL
== END ==
LOC: LAB 09:41
PROVIDERS: ATTEND Internal Medicine Rheumatology
DX: M06.09 Rheumatoid arthritis without rheumatoid factor, multiple sites (principal)